=== PATIENT | female | born 1985 | race Caucasian/White ===

== ENCOUNTER 2018-03-18 20:15 | Emergency (ER) | payer SELFPAY, OTHER ==
[2018-03-18 23:07] LABS: ADD UMIC YES; UR ASCORBIC ACID 20 mg/dL (NEGATIVE); UR BACTERIA FEW /HPF (NONE SEEN); UR BILIRUBIN (Dip) NEGATIVE (NEGATIVE); UR BLOOD (Dip) 3+ mg/dL (NEGATIVE); UR CLARITY CLOUDY (CLEAR); UR COLOR YELLOW (YELLOW); UR GLUCOSE (Dip) NEGATIVE (NEGATIVE); UR KETONES (Dip) NEGATIVE (NEGATIVE); UR LEUKOCYTE ESTERASE (Dip) 3+ Leu/ul (NEGATIVE); UR MUCUS FEW /HPF (NONE SEEN); UR NITRITE (Dip) NEGATIVE (NEGATIVE); UR RBC > 182 /HPF (0-5); UR SPECIFIC GRAVITY (Dip) 1.021 (1.003-1.030); UR SQUAMOUS EPITHELIAL CELL FEW /HPF (FEW); UR TOTAL PROTEIN (Dip) 2+ mg/dl (NEGATIVE); UR UROBILINOGEN (Dip) NEGATIVE (NEGATIVE); UR WBC > 182 /HPF (0-5)
== END 2018-03-18 23:27 | disposition home or self-care (01) ==
LOC: FTE 23:27
DX: N39.0 Urinary tract infection, site not specified (principal); Z87.891 Personal history of nicotine dependence; Z79.82 Long term (current) use of aspirin
CPT/HCPCS: 81001; 81025; 99283

== ENCOUNTER 2018-11-26 14:55 | Emergency (ER) | payer OTHER ==
[2018-11-26 17:43] LABS: URINE PH (Dip) POC 5.5 (5.0-8.5)
[2018-11-26 17:43] LABS: URINE BLOOD (Dip) POC Trace-lysed (NEGATIVE); URINE GLUCOSE (Dip) POC Negative (NEGATIVE); URINE KETONES (Dip) POC Negative (NEGATIVE); URINE LEUKOCYTE EST (Dip) POC 1+ (NEGATIVE); URINE NITRITE (Dip) POC Negative (NEGATIVE); URINE TOTAL PROTEIN POC Trace (NEGATIVE)
[2018-11-26] MEDS: KETOROLAC 30 MG INJ IM (17:50)
== END 2018-11-26 20:00 | disposition home or self-care (01) ==
LOC: FTE 14:55
DX: M43.06 Spondylolysis, lumbar region (principal); N39.0 Urinary tract infection, site not specified; F17.210 Nicotine dependence, cigarettes, uncomplicated
CPT/HCPCS: 72072; 72100; 72220; 81003; 81025; 96372; 99284-25

== ENCOUNTER 2019-04-11 16:48 | Emergency (ER) | payer OTHER ==
[2019-04-11] MEDS: ACETAMINOPHEN 325 MG TAB PO (17:31)
[2019-04-11] MEDS: BENZONATATE 100 MG CAP PO (17:31)
== END 2019-04-11 18:50 | disposition home or self-care (01) ==
LOC: FTE 18:50
DX: R05 Cough (principal); F17.210 Nicotine dependence, cigarettes, uncomplicated; Z79.82 Long term (current) use of aspirin
CPT/HCPCS: 71045; 99283-25